=== PATIENT | female | born 1960 | race Hispanic/Latino ===

== ENCOUNTER 2017-04-30 10:51 | Emergency (ER) | payer OTHER ==
[2017-04-30 11:00] VITALS: BP 131/77
[2017-04-30] MEDS ORDERED: NACL 0.9% IR ONE (11:23)
[2017-04-30] MEDS ORDERED: TRIPLE ANTIBIOTIC TP ONE (11:23)
[2017-04-30] MEDS ORDERED: XYLOCAINE 1% 20 mL INFILTRATI ONE (11:25)
[2017-04-30] MEDS ORDERED: XYLOCAINE 1% MPF 5 mL ONE (11:30)
[2017-04-30] MEDS ORDERED: NORCO 5/325 PO ONE (12:01)
[2017-04-30] MEDS ORDERED: ZOFRAN ODT PO ONE (12:01)
[2017-04-30] MEDS ORDERED: BOOSTRIX IM ONE (12:02)
--- NOTE | 2017-04-30 12:03 | Emergency Department Report ---
<CATHERINE MATHEWS - Last Filed: 04/30/17 13:21> - General Chief Complaint: Laceration/Recheck/Suture Stated Complaint: RIGHT HAND LACERATION - Related Data Previous Rx's Medication Instructions Recorded Last Taken Type Bacitracin Zinc Oint [Antibiotic 1 applicatio TP BID #1 oint...g. 04/30/17 Unknown Rx Oint] Cephalexin [Keflex] 500 mg PO Q12HR #20 cap 04/30/17 Unknown Rx HYDROcodone/APAP 5-325 [[place] 1 each PO Q6HR PRN #12 tablet 04/30/17 Unknown Rx 5/325] Ibuprofen [Motrin] 600 mg PO Q8H PRN #30 tablet 04/30/17 Unknown Rx Allergies Allergy/AdvReac Type Severity Reaction Status Date / Time No Known Allergies Allergy Verified 04/30/17 11:48 ED Review of Systems ROS: Stated complaint: RIGHT HAND LACERATION Other details as noted in HPI ED Past Medical Hx - Medications Home Medications: Home Medications Medication Instructions Recorded Confirmed Last Taken Type Bacitracin Zinc Oint [Antibiotic 1 applicatio TP BID #1 oint...g. 04/30/17 Unknown Rx Oint] Cephalexin [Keflex] 500 mg PO Q12HR #20 cap 04/30/17 Unknown Rx HYDROcodone/APAP 5-325 [[place] 1 each PO Q6HR PRN #12 tablet 04/30/17 Unknown Rx 5/325] Ibuprofen [Motrin] 600 mg PO Q8H PRN #30 tablet 04/30/17 Unknown Rx ED Course Vital Signs 04/30/17 10:55 Temperature 98.6 F Pulse Rate 97 H Respiratory 14 Rate Blood Pressure 131/77 O2 Sat by Pulse 97 Oximetry - Reevaluation(s) Reevaluation #1: 04/30/17 13:22 The patient is seen and examined in conjunction with the physician assistants. The dorsal aspect of the affected digits appears to be pink and well perfused. There is a macerated lesion noted on the volar aspect of the middle finger, and appears to involve the bone. Extensive discussion had with patient. She wants to drive back to [place] with family, and follow up with a hand surgeon up there. I indicated to the patient that I would be happy to speak to her primary care physician to assist in coordinating care. The physician social human services assistants will perform block, irrigate, and loosely closed. Patient is reliable for follow-up Critical care attestation.: If time is entered above; I have spent that time in minutes in the direct care of this critically ill patient, excluding procedure time. ED Disposition Clinical Impression: Contusion of fingertip Qualifiers: Encounter type: initial encounter Qualified Code(s): S60.00XA - Contusion of unspecified finger without damage to nail, initial encounter Finger laceration Qualifiers: Encounter type: initial encounter Finger: middle finger Damage to nail status: without damage Foreign body presence: without foreign body Laterality: right Qualified Code(s): S61.212A - Laceration without foreign body of right middle finger without damage to nail, initial encounter Finger fracture, right Qualifiers: Encounter type: initial encounter Finger: middle finger Fracture type: open Phalanx: distal Fracture alignment: nondisplaced Qualified Code(s): S62.662B - Nondisplaced fracture of distal phalanx of right middle finger, initial encounter for open fracture Disposition: TO HOME OR SELFCARE Condition: Stable Instructions: Finger Fracture (ED), Laceration (ED), Suture Care (ED), Finger Laceration (ED), Acute Wound Care (ED) Additional Instructions: [email or web address] Prescriptions: Bacitracin Zinc Oint [Antibiotic Oint] 1 applicatio TP BID #1 oint...g. Cephalexin [Keflex] 500 mg PO Q12HR #20 cap HYDROcodone/APAP 5-325 [[place] 5/325] 1 each PO Q6HR PRN #12 tablet PRN Reason: Pain Ibuprofen [Motrin] 600 mg PO Q8H PRN #30 tablet PRN Reason: Pain Referrals: [facility] [Provider Group] - 3-5 Days <SHELLEY SERRANO - Last Filed: 04/30/17 15:12> - General Source: patient Mode of arrival: Ambulatory Limitations: No Limitations - History of Present Illness Initial Comments: 56-year-old female past medical history none presents with complaint of laceration to right middle finger that occurred today. Patient states she was trimming her wishes with electric hedge trimmers approximately 40 minutes ago and she accidentally cut the tip of her finger. Patient has visible laceration at distal middle finger. Patient unaware of tetanus status. Denies any other injuries. finger wrapped with gauze -: This afternoon Extremity Location: Right: Hand (right distal middle fingertip) Place: home Patient Tetanus UTD: No Context: accidental Associated Symptoms: pain ED Review of Systems Constitutional: denies: chills, fever Eyes: denies: eye pain, eye discharge, vision change ENT: denies: ear pain, throat pain Respiratory: denies: cough, shortness of breath, wheezing Cardiovascular: denies: chest pain, palpitations Endocrine: no symptoms reported Gastrointestinal: denies: abdominal pain, nausea, diarrhea Genitourinary: denies: urgency, dysuria, discharge Musculoskeletal: denies: back pain, joint swelling, arthralgia Skin: denies: rash, lesions Neurological: denies: headache, weakness, paresthesias Psychiatric: denies: anxiety, depression Hematological/Lymphatic: denies: easy bleeding, easy bruising ED Past Medical Hx - Past Medical History Previous Medical History?: No - Surgical History Past Surgical History?: No - Social History Smoking Status: Never Smoker Substance Use Type: Alcohol ED Physical Exam - General Limitations: No Limitations General appearance: alert, in no apparent distress - Head Head exam: Present: atraumatic, normocephalic - Eye Eye exam: Present: normal appearance, PERRL, EOMI - ENT ENT exam: Present: mucous membranes moist - Neck Neck exam: Present: normal inspection - Respiratory Respiratory exam: Present: normal lung sounds bilaterally. Absent: respiratory distress - Cardiovascular Cardiovascular Exam: Present: regular rate, normal rhythm. Absent: systolic murmur, diastolic murmur, rubs, gallop - GI/Abdominal GI/Abdominal exam: Present: soft, normal bowel sounds - Extremities Exam Extremities exam: Present: normal inspection - Expanded Upper Extremity Exam Right Shoulder Exam: Present: normal inspection, full ROM Upper Arm exam: Present: normal inspection, full ROM Elbow exam: Present: normal inspection, full ROM Forearm Wrist exam: Present: normal inspection, full ROM Hand Wrist exam: Present: normal inspection, full ROM (wrist flexion and extension intact lateral rotation) Hand L/R Front: 1 - Positive: laceration (large semicircumferential deep laceration/partial amputation of distal right fingertip tuft/pad) Neuro motor exam: Present: wrist extension intact, thumb opposition intact, thumb IP flexion intact, thumb adduction intact, fingers 2-5 abduction intact Vascular: Present: normal capillary refill (distal capillary refill intact all fingers including right distal middle), radial pulse - Back Exam Back exam: Present: normal inspection - Neurological Exam Neurological exam: Present: alert, oriented X3, CN II-XII intact - Psychiatric Psychiatric exam: Present: normal affect, normal mood - Skin Skin exam: Present: warm, dry, intact, normal color. Absent: rash - Laceration /Wound Repair Right Distal Finger Wound Location: upper extremity (distal middle finger tuft/ finger pad) Wound Length (cm): 3 Wound's Depth, Shape: irregular, flap, stellate, contused tissue Wound Explored: clean Irrigated w/ Saline (ccs): 1,000 Betadine Prep?: Yes Anesthesia: 1% Lidocaine Volume Anesthetic (ccs): 6 Wound Repaired With: sutures Suture Size/Type: 4:0, proline Number of Sutures: 8 Sterile Dressing Applied?: Yes (tripel abx ointment with sterile gauze) Progress: Digital block performed good local anesthesia achieved. Wound cleaned and irrigated with sterile saline and iodine mixture with several flushes. Wound approximated with 8 4-0 Prolene sutures. Minimal bleeding procedure tolerated well. Patient had triple antibiotic ointment sterile gauze and finger's point placed on afterward. ED Medical Decision Making - Medical Decision Making A/P: distal right middle fingertip laceration, distal tuft fracture 1- sutures to be removed in 10-14 days. Placed in a finger splint 2- tetanus updated today 3- keflex 10 day course, Motrin when necessary, triple antibiotic ointment 4- pt advised to return to the ED for any fevers chills pus drainage erythema at site of laceration 5- case discussed with ED attending will also examine the patient's injury. Wound approximated. Patient lives in [place] and states that she will follow- up for reassessment of her fingertip injury in her hometown. She expressed this to me and . her family members were at bedside for this discussion. I emphasized the importance of follow-up with an orthopedic hand specialist to mitigate any infection loss of tissue and/or permanent dysfunction associated with injury. Patient stated she understood my instructions and the importance of follow-up. pt gave me verbal consent to take an image of fingertip injury, this was witnessed by RN and pts family at bedside. Critical Care Time: Yes Critical care time in (mins) excluding proc time.: 120 ED Disposition Is pt being admited?: No Does the pt Need Aspirin: No Time of Disposition: 14:52
--- NOTE | 2017-04-30 12:25 | XRay Report ---
Right third digit: Trauma, laceration. The third digit is bandaged. There is laceration of the distal soft tissues as well as a transverse fracture through the distal phalanx. Small bony fragments are present but there is relatively good alignment of the fracture. No foreign body identified. An AP view of the remainder of the hand is unremarkable. Impression: Third digit laceration/fracture.
[2017-04-30] MEDS ORDERED: KEFLEX PO ONE (13:56)
== END 2017-04-30 15:17 | disposition home or self-care (01) ==
LOC: ED 10:51
DX: S62.662B Nondisplaced fracture of distal phalanx of right middle finger, initial encounter for open fracture (principal); S61.212A Laceration without foreign body of right middle finger without damage to nail, initial encounter; S60.00XA Contusion of unspecified finger without damage to nail, initial encounter; W31.89XA Contact with other specified machinery, initial encounter; Y93.89 Activity, other specified; Y92.89 Other specified places as the place of occurrence of the external cause; Y99.8 Other external cause status
CPT/HCPCS: 90471; 90715; 99292; A6250; Q0162